=== PATIENT | female | born 1960 ===

== ENCOUNTER 2016-06-15 05:07 | Inpatient (IN) | payer OTHER ==
[2016-06-15] VITALS (15 sets, daily range): BP systolic 109–181; BP diastolic 60–87
[~2016-06-15] VITALS: Ht 167.6 cm; Wt 90.7 kg
[~2016-06-15 05:07] MED LIST: ASPIRIN81 MG ORAL; GLIPIZIDE5 MG ORAL; HYDROCHLOROTH12.5 M2 ORAL; LEVEMIR100 UNIT/1 SUBQ; LIPITOR40 MG ORAL; METFORMIN HCL1000 M1 ORAL; PAXIL20 MG ORAL
[2016-06-15] MEDS ORDERED: Vancomycin 1gm inj IVPB ONE (06:28)
[2016-06-15] MEDS ORDERED: Surgicel 4in x 8in TOPIC ONE (06:28)
[2016-06-15] MEDS ORDERED: Thrombin 5000 units TOPIC ONE (06:28)
[2016-06-15] MEDS ORDERED: Bupivacaine 0.5% Inj 30 ml vial INJ ONE (06:29)
[2016-06-15] MEDS ORDERED: Bacitracin 50000 Units Vial ONE (06:29)
[2016-06-15] MEDS ORDERED: Bupivacaine w/Epi 0.5% 30ml Vial INJ ONE (06:29)
[2016-06-15] MEDS ORDERED: Heparin 5000 units/ml inj ONE (06:49)
[2016-06-15] MEDS ORDERED: ceFAZolin sod 1 GM in NS 55 ML IVPB ONE (07:00)
[2016-06-15] MEDS ORDERED: Dexamethasone 20mg/5ml IVP ONE (07:00)
--- NOTE | 2016-06-15 07:13 | Anethesia Preoperative Eval ---
Anesthesia Pre-op PMH/ROS General Date of Evaluation: Jun 15, 2016 Time of Evaluation: 07:21 Anesthesiologist: Evelyn ASA Score: ASA 3 Mallampati Score Class I : Soft palate, uvula, fauces, pillars visible Class II: Soft palate, uvula, fauces visible Class III: Soft palate, base of uvula visible Class IV: Only hard plate visible Mallampati Classification: Class II Surgeon: Dalton Diagnosis: Back Pain Surgical Procedure: ADR L 5-S1 Anesthesia History: none Social History: current smoker Family History: no anesthesia problems Allergies: Coded Allergies: MORPHINE (Verified Allergy, Unknown, 01/06/16) Medications: see eMAR Past Medical History Cardiovascular: Reports: HTN, other - HL Pulmonary: Reports: other - Smoker Gastrointestinal/Genitourinary: Reports: GERD Neurologic/Psychiatric: Reports: depression/anxiety Endocrine: Reports: DM Other: obesity - BMI 33 Anesthesia Pre-op Phys. Exam Physician Exam Last Vital Signs Date Time Temp Pulse Resp B/P Pulse Ox O2 Delivery O2 Flow Rate FiO2 06/15/16 06:01 97.8 76 18 137/75 96 Room Air Constitutional: NAD Neurologic: CN 2-12 intact Cardiovascular: RRR Respiratory: CTA Gastrointestinal: S/NT/ND Airway Exam Mallampati Score: Class II MO: limited ROM: limited Teeth: intact, broken Anesthesia Pre-op A/P Studies Pre-op Studies: EKG - LAE Risk Assessment & Plan Assessment: ASA 3 Plan: GA, BIS, Glidescope Status Change Before Surgery: No Pre-Antibiotics Dru Grams Ancef IV Given Within 1 Hr of Incision: Yes Time Given: 07:36 Willard Rivas MD Jun 15, 2016 07:13
[2016-06-15] MEDS ORDERED: LR 1000ml 1,000 ML IVLG SCH (07:14)
[2016-06-15] MEDS ORDERED: Metoclopramide 10mg/2ml Inj IVP PRN (07:15)
[2016-06-15] MEDS ORDERED: Hydromorphone 0.5mg/0.5ml inj IVP PRN (07:15)
[2016-06-15] MEDS ORDERED: LORazepam Inj 2mg/ml 1ml IV PRN (07:15)
[2016-06-15] MEDS ORDERED: Norco 7.5mg/325mg tab ORAL PRN (07:15)
[2016-06-15] MEDS ORDERED: Labetalol 5mg/ml 20ml vial IV PRN (07:15)
[2016-06-15] MEDS ORDERED: Norco 5mg/325mg tab ORAL PRN (07:15)
[2016-06-15] MEDS ORDERED: Midazolam 2mg/2ml Inj IVP PRN (07:15)
[2016-06-15] MEDS ORDERED: Oxycodone/Acetaminophen 5-325 ORAL PRN (07:15)
[2016-06-15] MEDS ORDERED: Ketorolac 60mg Inj IV PRN (07:15)
[2016-06-15] MEDS ORDERED: Atropine Inj 1mg/10ml Syr IV PRN (07:15)
[2016-06-15] MEDS ORDERED: Ketorolac 30mg Inj IV PRN (07:15)
[2016-06-15] MEDS ORDERED: DiphenhydrAMINE 50mg/ml Inj IVP PRN (07:15)
[2016-06-15] MEDS ORDERED: fentaNYL 100 mcg/2 mL IV PRN (07:15)
[2016-06-15] MEDS ORDERED: Meperidine 25mg/ml Inj IV PRN (07:15)
--- NOTE | 2016-06-15 07:17 | Immediate Post-Op Evaluation ---
Immediate Post-Op Evalulation Immediate Post-Op Evalulation Procedure: ALIF L5-S1 Date of Evaluation: Jun 15, 2016 Time of Evaluation: 09:52 IV Fluids: 700 LR Blood Products: 0 Estimated Blood Loss: 50 Urinary Output: 200 Blood Pressure Systolic: 153 Blood Pressure Diastolic: 79 Pulse Rate: 90 Respiratory Rate: 16 O2 Sat by Pulse Oximetry: 98 Temperature (Fahrenheit): 98.6 Pain Score (1-10): 3 Nausea: No Vomiting: No Complications 0 Patient Status: awake, reacts, patent, extubated, none Hydration Status: adequate Dru Grams Ancef IV Given Within 1 Hr of Incision: Yes Time Given: 07:36 Willard Rivas MD Jun 15, 2016 07:17
[2016-06-15] MEDS ORDERED: fentaNYL 100 mcg/2 mL IV ONE (07:30)
[2016-06-15] MEDS ORDERED: LR 1000ml ONE (07:30)
[2016-06-15] MEDS ORDERED: Glycopyrrolate 0.2mg/ml 1ml Vial ONE (07:30)
[2016-06-15] MEDS ORDERED: Propofol 10mg/ml 20ml IV ONE (07:30)
[2016-06-15] MEDS ORDERED: fentaNYL 250mcg/5ml ONE (07:30)
[2016-06-15] MEDS ORDERED: Neostigmine 1mg/ml 10ml Inj ONE (07:30)
[2016-06-15] MEDS ORDERED: NS Irrig 1000ml ONE (07:30)
[2016-06-15] MEDS ORDERED: Zemuron 50mg/5ml Inj IV ONE (07:30)
[2016-06-15] MEDS ORDERED: Lidocaine 1% MPF 10mg/ml 5ml ONE (07:30)
[2016-06-15] MEDS ORDERED: Midazolam 2mg/2ml Inj ONE (07:30)
[2016-06-15] MEDS ORDERED: Sterile Water Irrig 1000ml IRRIG ONE (07:30)
--- NOTE | 2016-06-15 07:34 | Pre-Procedure Note/Attestation ---
Pre-Procedure Note/Attestation Complete Prior to Procedure Planned Procedure: not applicable Procedure Narrative: ALIF L5-S1 Indications for Procedure Pre-Operative Diagnosis: Post-trauma lumbar back pain Attestation I attest that I discussed the nature of the procedure; its benefits; risks and complications; and alternatives (and the risks and benefits of such alternatives ), prior to the procedure, with the patient (or the patient's legal development representative). I attest that, if there was a reasonable possibility of needing a blood transfusion, the patient (or the patient's legal development representative) was given the [facility] standardized written summary, pursuant to the Shar Bharat Blood Safety Act ([place] Health and Safety Code # 1645, as amended). I attest that I re-evaluated the patient just prior to the surgery and that there has been no change in the patient's H&P, except as documented below: ARCENIO VARELA Jun 15, 2016 07:34
[2016-06-15] MEDS ORDERED: D5 1/2NS 1,000 ML IV SCH (09:14)
--- NOTE | 2016-06-15 09:14 | Brief Operative Note ---
Immediate Post Operative Note Operative Note Pre-op Diagnosis: Post-trauma lumbar back pain Procedure: Hemivertebrectomy L5, S1 Correction deformity L5-S1 INterbody Reconstruction / Fusion Titanium Cages, BMP rior internal plate fixation SSEP xray Post-op Diagnosis: same as pre-op Findings: consistent w/pre-op dx studies Surgeon: Dalton Armature Winder: Jeremi Anesthesiologist: Evelyn Anesthesia: general Specimen: none Complications: none Condition: stable Estimated Blood Loss: minimal Drains: none Implant(s) used?: Yes ARCENIO VARELA Jun 15, 2016 09:14
[2016-06-15] MEDS ORDERED: Naloxone 0.4mg/ml Inj IVP PRN ×2 (09:15→11:45)
[2016-06-15] MEDS ORDERED: traMADol 50mg tab ORAL PRN (10:30)
[2016-06-15] MEDS ORDERED: Tylenol #3 tab (300mg/30mg) ORAL PRN (10:30)
[2016-06-15] MEDS ORDERED: Acetaminophen (Non formulary) 100 ML IV ONE (11:00)
[2016-06-15] MEDS: PCA HYDROmorphone 1mg/ml 30 ML IV PRN (11:49)
[2016-06-15] MEDS ORDERED: LORazepam 0.5mg tab ORAL PRN (12:00)
[2016-06-15] MEDS ORDERED: Rate Change PCA 1 Each MISC PRN (12:00)
[2016-06-15] MEDS ORDERED: HYDROmorphone 1mg/ml Carpuject SUBQ PRN (12:00)
[2016-06-15] MEDS ORDERED: oxyCODONE 5mg IR tab ORAL PRN ×2 (12:00)
--- NOTE | 2016-06-15 12:32 | Diagnostic Imaging Report ---
Indication: Back pain, intraoperative Technique: Digital intraoperative images Comparison: None Findings: Initial image demonstrates a surgical tool projected anterior to what is presumably L5-S1. Subsequent images demonstrate anterior fusion with anterior fusion hardware and disc spacer in place. Impression: Intraoperative imaging, as described
--- NOTE | 2016-06-15 15:00 | Operative Note - Dictated ---
DATE OF OPERATION: 06/15/2016 ADMITTING/PREOPERATIVE DIAGNOSIS: L5-S1 posttraumatic discogenic back pain. POSTOPERATIVE DIAGNOSIS: L5-S1 posttraumatic discogenic back pain. SURGEON: Gurpreet Hoffman Ph.D. M.D. [employer] SURGEON: Warren Blood M.D., Vascular Surgery (please see separate dictation for exposure and closure, Dr. Blood). ANESTHESIOLOGIST: Willard Rivas M.D. ANESTHESIA: General with intubation. ESTIMATED BLOOD LOSS: Less than 50 mL. COMPLICATIONS: None. POSTOPERATIVE CONDITION: Good/stable. DRAINS: None. OPERATIVE PROCEDURE: 1. L5-S1 anterior emanuel-vertebrectomy, inferior L5 superior S1. 2. Correction of the deformity from kyphosis to lordosis. 3. Interpositional grafting. 4. Synthetic titanium cages bilaterally, LT 16 mm diameter. 5. Interbody fusion, L5-S1, bone morphogenic protein. 6. Anterior internal plate fixation, 25 mm screws. 7. SSEP monitoring. 8. Intraoperative x-rays interpreted by surgeon. PROCEDURE: The patient was brought to the operating room and in the supine position, general anesthesia with intubation was induced. IV antibiotics were administered prior to incision time. After appropriate positioning, the anterior abdomen was sterilely prepped and draped free in the usual sterile fashion. For anterior approach, please see separate dictation by Dr. Blood. Identification of the midline and in the lateral was performed with a needle placed into the disc space with the needle bent at 90 degree angle so as to avoid penetration greater than 4 mm. Level marked. Needle removed. Retractors placed. Annulotomy was performed, followed with diskectomy too, but not through the posterior longitudinal ligament. SSEP monitoring stable. Determination of interval sizing to 16 mm graft. Emanuel-vertebrectomy, inferior L5 superior S1. Interpositional placement of titanium lordotic cages correction the deformity from kyphosis to lordosis placed bilaterally. SSEP monitoring stable. Titanium cages containing bone morphogenic protein for fusion L5-S1. Grafts incorporated in fibrin glue. Anterior internal plate fixation in a compressive fashion undertaken with 25 mm screws. Fluoroscopic guidance utilized at all times. Closure through the expertise of Dr. Blood. The patient subsequently transferred to postop recovery in good stable condition. Gurpreet Hoffman M.D. DR: MARIE JOB#: [id number] CC:
[2016-06-15] MEDS: PCA shift volume MISC SCH ×2 (15:16→23:00)
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
[2016-06-15] MEDS ORDERED: NovoLOG Insulin Flexpen SUBQ SCH (16:30)
[2016-06-15] MEDS: ceFAZolin sod 1 GM in D5W 55 ML IV SCH (16:32)
[2016-06-15] MEDS ORDERED: Milk of Magnesia 30ml Ud ORAL PRN (17:30)
[2016-06-15] MEDS: metFORMIN 500mg tab ORAL SCH (18:27)
[2016-06-15] MEDS: Docusate 100mg cap ORAL SCH (18:27)
--- NOTE | 2016-06-15 19:59 | Cardiology Progress Note ---
Assessment/Plan Assessment/Plan dm htn hyperlipidemia poor compliance tobacco use do obeisty work odd hours compliance with med has been an issue will try to continue her usual itme for her to get her diabetic meds has received steroid so will have higher insulin requirement as well hypoglycemic protocol iv hydration resume antidepressant but nto antihypertensive Objective Last 24 Hour Vital Signs Date Time Temp Pulse Resp B/P Pulse Ox O2 Delivery O2 Flow Rate FiO2 06/15/16 16:00 98.1 101 17 109/60 94 Room Air 06/15/16 12:40 18 06/15/16 12:25 18 06/15/16 12:10 18 06/15/16 12:00 97.9 88 19 117/65 99 Nasal Cannula 3.0 06/15/16 11:55 18 06/15/16 11:15 98.0 86 14 130/66 99 Nasal Cannula 3.0 06/15/16 11:05 86 15 122/68 99 Nasal Cannula 3.0 06/15/16 10:55 85 12 129/67 99 Nasal Cannula 3.0 06/15/16 10:40 87 13 117/60 99 Nasal Cannula 3.0 06/15/16 10:36 98.5 06/15/16 10:25 87 15 159/80 99 Nasal Cannula 3.0 06/15/16 10:20 86 13 161/79 99 Nasal Cannula 3.0 06/15/16 10:10 88 14 181/85 100 Simple Mask 6.0 06/15/16 10:10 97 181/85 06/15/16 10:00 92 15 172/85 100 Simple Mask 6.0 06/15/16 09:50 88 11 132/87 99 Simple Mask 6.0 06/15/16 09:45 85 12 147/82 99 Simple Mask 6.0 06/15/16 09:42 90 16 98 06/15/16 09:41 98.6 88 10 153/79 99 Simple Mask 6.0 06/15/16 06:01 97.8 76 18 137/75 96 Room Air Intake and Output 06/14/16 06/15/16 19:00 07:00 # Voids 1 EDDIE ENRIQUEZ Jun 15, 2016 19:59
[2016-06-15] MEDS ORDERED: Levemir Flexpen SUBQ ONE (21:00)
[2016-06-15] MEDS ORDERED: Levemir Flexpen SUBQ SCH (21:00)
[2016-06-15] MEDS: NovoLOG Insulin Flexpen SUBQ SCH (21:18)
[2016-06-16] VITALS: BP 120/70
[2016-06-16] MEDS: ceFAZolin sod 1 GM in D5W 55 ML IV SCH ×2 (00:16→08:10)
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
[2016-06-16 04:00] VITALS: BP 121/73
[2016-06-16] MEDS: NovoLOG Insulin Flexpen SUBQ SCH ×4 (06:09→21:49)
[2016-06-16] MEDS: PCA shift volume MISC SCH ×3 (07:00→23:00)
[2016-06-16 08:00] VITALS: BP 122/71
[2016-06-16] MEDS: Docusate 100mg cap ORAL SCH ×2 (09:14→17:20)
[2016-06-16] MEDS: metFORMIN 500mg tab ORAL SCH ×2 (09:15→17:20)
[2016-06-16] MEDS: PARoxetine 20mg tab ORAL SCH (09:15)
--- NOTE | 2016-06-16 09:49 | Progress Note ---
DATE: 06/16/2016 ACUTE PAIN MANAGEMENT PHYSICIAN PROGRESS NOTE: MEDICATIONS: Medication administration record reviewed. Medications include IV fluids, Colace, Protonix, pain medications, Paxil, and Ancef. Medications include BUSINESS TECHNOLOGY ANALYST Dilaudid, Cepacol, Benadryl, breakthrough Dilaudid, Mylanta, Zofran, oxycodone, and Ativan. OBJECTIVE: VITAL SIGNS: Afebrile, pulse 87, respiration 16, blood pressure 121/73, and oxygen saturation 98% on nasal cannula oxygen. LABORATORY STUDIES: No interval laboratory studies. I spent over 60 minutes in consultation today. I saw the patient at bedside. After discussion with the overnight nurse. I discussed the case with the surgeon, Dr. Hoffman. The patient is doing well after her lumbar spine fusion surgery yesterday. She is moving all extremities x4. She has not yet moved out of bed. She is not yet passing positive flatus, but has had no nausea symptoms. She remains NPO except for medications. We will holding her diabetic medications since she is NPO. Her last Accu-Chek was 180. The patient denies any shortness of breath or chest pain. She has been using her BUSINESS TECHNOLOGY ANALYST Dilaudid unit with good effect. The patient does state that she has tolerated Avery at home. I will leave a prescription for Avery 15 tablets along with Soma 25 tablets for outpatient usage. I also make available hydrocodone and oxycodone here in the hospital depending on her pain levels. I did encouraged the breakthrough doses of Dilaudid to help her ambulate later today with physical therapy. After ALIF procedure, we will await for evidence of positive bowel function returned, with positive flatus, before advancing her diet. I will defer the Lee care to the surgeon, Dr. Hoffman. The patient is comfortable with the current course. She had sequential compression devices in place for DVT prophylaxis. I did encourage aggressive incentive spirometer usage with her significant obesity. The patient agrees to be compliant with the recommended treatment. I do have a low dose available Ativan 0.5 mg for anxiety. Her anxiety levels have been well controlled currently. I will continue the Protonix for GI ulcer prophylaxis. Pillo Back M.D. DR: Nighat JOB#: [id number] CC:
--- NOTE | 2016-06-16 10:19 | Operative Note - Dictated ---
DATE OF OPERATION: 06/15/2016 VASCULAR SURGEON: Warren Blood M.D. SPINE SURGEON: Gurpreet Hoffman M.D. PREOPERATIVE DIAGNOSIS: Degenerative disc disease. POSTOPERATIVE DIAGNOSIS: Degenerative disc disease. PROCEDURE PERFORMED: Anterior retroperitoneal exposure of L5-S1 vertebral interspace. INDICATIONS: The patient is a very pleasant woman, who was seen in my office along with her family. She was carefully explained the need for vascular surgery involvement for anterior exposure of L5-S1, the possibility of vascular injury with possible need for blood transfusion, and deep venous thrombosis explicitly discussed as well as the need for lower abdominal incision. She understands these risks and wished to proceed. DESCRIPTION OF FINDINGS: A low Pfannenstiel type incision was used. A left retroperitoneal approach was used. There is no peritoneal or ureteral violation. There is no vascular injury. BLOOD LOSS: Less than 50 mL. COMPLICATIONS: Were none. DESCRIPTION OF PROCEDURE: The patient taken to the operative room, general anesthesia was used. Lee catheter was placed. The patient's abdomen was prepped and draped. Appropriate timeout procedures were taken. A transverse incision made just above the pubic symphysis. Flaps were raised superiorly and inferiorly. The anterior fascia was incised longitudinally in the midline. A plane identified posterior to the left rectus abdominis and developed posterolaterally towards the patient's left. The retroperitoneal space was entered below the arcuate line. The peritoneum and ureter mobilized towards the patient's right exposing the left common iliac vessels. Dissection was carried on the undersurface of left common iliac vein. The median sacral artery and vein were identified and ligated with vascular clips and divided, this allowed us to mobilize the iliac vessels superiorly and laterally and exposing the anterior surface of L5 and S1. The Omni retractors was set in place. Fluoroscopy used to confirm the appropriate level. Instrumentation and fusion were performed at L5-S1 as dictated separately. On completion, retractor gently removed. The peritoneum and ureter were intact. Iliac vessels were intact. The patient had a palpable external iliac artery pulse and normal pulse oximetry in the left foot throughout the case. The anterior fascia was then closed using #1 PDS suture in a running fashion. The skin and subcutaneous tissue closed using 3-0 Vicryl and 4-0 Monocryl running subcuticular closure technique. Estimated blood loss was less than 100 mL. Complication none. Warren Blood M.D. DR: Amor JOB#: [id number] CC: Warren Blood M.D.; Fax#: [phone] Hopkins, M.D. [facility] CENTERMiki
--- NOTE | 2016-06-16 11:06 | 48 Hour Post Anesthesia Eval ---
Post Anesthesia Evaluation Procedure: ALIF L5-S1 Date of Evaluation: Jun 16, 2016 Time of Evaluation: 06:40 Blood Pressure Systolic: 121 0: 73 Pulse Rate: 87 Respiratory Rate: 16 Temperature (Fahrenheit): 98.2 O2 Sat by Pulse Oximetry: 96 Airway: patent Nausea: No Vomiting: No Pain Intensity: 0 Hydration Status: adequate Cardiopulmonary Status: at baseline Mental Status/LOC: patient returned to baseline Post-Anesthesia Complications: 0 Follow-up care needed: N/A - further care as per primary team SARA PETER M.D. Jun 16, 2016 11:06
[2016-06-16 12:00] VITALS: BP 127/74
[2016-06-16] MEDS: PCA HYDROmorphone 1mg/ml 30 ML IV PRN (14:00)
[2016-06-16 16:00] VITALS: BP 122/68
--- NOTE | 2016-06-16 19:40 | Cardiology Progress Note ---
Assessment/Plan Assessment/Plan dm htn hyperlipidemia poor compliance tobacco use do obeisty indicated sarah lnot be working for the next few mon so agreeable to ashley geiger bs at [facility] still eelvated did no piter geiger thism am sarah have as of tonite is on mod intensity iss coverage d/w staff Subjective Cardiovascular: Denies: chest pain, lightheadedness, palpitations Respiratory: Denies: shortness of breath Gastrointestinal/Abdominal: Reports: constipated, Denies: abdomen distended Genitourinary: Denies: burning Objective Last 24 Hour Vital Signs Date Time Temp Pulse Resp B/P Pulse Ox O2 Delivery O2 Flow Rate FiO2 06/16/16 16:00 98.8 89 18 122/68 97 Nasal Cannula 2.0 06/16/16 16:00 18 06/16/16 14:30 98.1 06/16/16 14:03 18 06/16/16 12:00 18 06/16/16 12:00 98.1 86 20 127/74 98 Nasal Cannula 2.0 06/16/16 11:06 87 16 96 06/16/16 08:00 18 06/16/16 08:00 98.4 87 19 122/71 98 Nasal Cannula 2.0 06/16/16 04:00 98.2 87 18 121/73 96 Nasal Cannula 2.0 06/16/16 04:00 16 06/16/16 00:00 98.4 87 18 120/70 97 Room Air 06/16/16 00:00 18 06/15/16 20:00 16 06/15/16 20:00 97.9 90 18 129/74 97 Nasal Cannula 2.0 General Appearance: no apparent distress, alert Neck: supple Cardiovascular: normal rate, regular rhythm Respiratory/Chest: lungs clear, normal breath sounds Abdomen: hypoactive bowel sounds, tender - mild Extremities: non-tender, no swelling Intake and Output 06/15/16 06/16/16 19:00 07:00 Intake Total 700 ml 390 ml Output Total 250 ml 2500 ml Balance 450 ml -2110 ml Intake Oral 390 ml IV Total 700 ml Output Urine Total 200 ml 2500 ml Estimated Blood Loss 50 ml EDDIE ENRIQUEZ Jun 16, 2016 19:40
[2016-06-16 20:00] VITALS: BP 126/70
[2016-06-16] MEDS ORDERED: Levemir Flexpen SUBQ SCH ×2 (21:00)
[2016-06-17 00:25] VITALS: BP 110/64
[2016-06-17 04:00] VITALS: BP 107/66
[2016-06-17] MEDS: NovoLOG Insulin Flexpen SUBQ SCH ×4 (06:55→21:00)
[2016-06-17 08:00] VITALS: BP 113/65
[2016-06-17] MEDS: Docusate 100mg cap ORAL SCH ×2 (08:57→17:29)
[2016-06-17] MEDS: PARoxetine 20mg tab ORAL SCH (08:57)
[2016-06-17] MEDS: metFORMIN 500mg tab ORAL SCH ×2 (08:57→17:29)
[2016-06-17] MEDS ORDERED: 1/2 NS 1000ml IV ONE (09:45)
[2016-06-17] MEDS ORDERED: Tubing IV Secondary IV ONE (09:45)
--- NOTE | 2016-06-17 09:49 | Progress Note ---
DATE: 06/17/2016 ACUTE PAIN MANAGEMENT PHYSICIAN PROGRESS NOTE: SUBJECTIVE: Medication administration record reviewed. Medications include [place], Mylanta, Cepacol, Benadryl, Colace, Dilaudid, diabetes medications Ativan, Glucophage, Narcan Zofran oxycodone, Protonix, and Paxil. PHYSICAL EXAMINATION: VITAL SIGNS: Afebrile. 98.4 T-max overnight is 99.5, pulse 84, respirations 18, blood pressure 113/65, and pulse oximetry is 95% on supplemental oxygen. LABORATORY STUDIES: No interval laboratory studies. I spent over 60 minutes in consultation today. I saw the patient at the bedside with the nurse RN, Samm. I discussed the case with the charge nurse, LUIS ALBERTO Lang, along with the surgeon, Dr. Hoffman. The patient just started passing positive flatus, so surgeon will determine if he wants to advance her diet after anterior lumbar interbody fusion surgery. Lee catheter remains in place. I have asked the surgeon to determine if he feels comfortable to remove the Lee catheter at this time. The patient did ambulate out of bed one time yesterday with physical therapy. She is progressing fairly slowly with ambulation. I encouraged the patient to aggressively ambulate. I will discontinue the METALLOGRAPHIC TECHNICIAN and wean off her oxygen nasal cannula to make it easier to disconnect the monitor so that she can walk more frequently. The patient has been very compliant using her incentive spirometer. The patient is hungry and has no nausea symptoms. The patient states that the pain control has been adequate on the current analgesic regimen. I did leave a prescription for [place] for outpatient usage. The patient will continue on her mood stabilizing agent. Dr. Smith has been managing the patient's labile diabetes. Pillo Back M.D. DR: FARRAH JOB#: [id number] CC:
[2016-06-17 12:00] VITALS: BP 99/56
[2016-06-17] MEDS: Norco 10mg/325mg tab ORAL PRN (15:11)
[2016-06-17 16:00] VITALS: BP 122/64
--- NOTE | 2016-06-17 18:22 | Cardiology Progress Note ---
Assessment/Plan Assessment/Plan continue current management her condition is stable no change in medications Subjective Subjective The patient reports feeling good much better, no complaints Objective Last 24 Hour Vital Signs Date Time Temp Pulse Resp B/P Pulse Ox O2 Delivery O2 Flow Rate FiO2 06/17/16 17:29 97.7 06/17/16 16:00 97.7 80 18 122/64 92 Room Air 06/17/16 12:00 97.7 78 17 99/56 92 Room Air 06/17/16 08:00 98.4 84 18 113/65 95 Nasal Cannula 2.0 06/17/16 04:00 97.2 83 20 107/66 93 Nasal Cannula 06/17/16 04:00 18 06/17/16 00:25 99.5 84 21 110/64 94 Nasal Cannula 2.0 06/17/16 00:00 18 06/16/16 20:00 18 06/16/16 20:00 98.1 81 18 126/70 96 Nasal Cannula 2.0 General Appearance: no apparent distress, alert EENT: PERRL/EOMI Neck: supple Rhythm: NSR Cardiovascular: normal rate Respiratory/Chest: lungs clear Abdomen: non tender Extremities: non-tender Intake and Output 06/16/16 06/17/16 19:00 07:00 Intake Total 625 ml 365 ml Output Total 750 ml 1625 ml Balance -125 ml -1260 ml Intake Oral 240 ml IV Total 625 ml 125 ml Output Urine Total 750 ml 1625 ml Microbiology Date/Time Source Procedure Growth Status 06/15/16 05:50 Nasal Nares MRSA Culture - Final NO METHICILLIN RESISTANT STAPH AUREUS... Complete DOLORES WELCH Jun 17, 2016 18:22
[2016-06-17 20:00] VITALS: BP 108/60
[2016-06-17] MEDS: Levemir Flexpen SUBQ SCH (21:59)
[2016-06-18 00:45] VITALS: BP 101/61
[2016-06-18 04:00] VITALS: BP 112/68
[2016-06-18] MEDS: NovoLOG Insulin Flexpen SUBQ SCH ×4 (06:07→21:56)
[2016-06-18] MEDS: Docusate 100mg cap ORAL SCH ×2 (08:04→17:18)
[2016-06-18] MEDS: metFORMIN 500mg tab ORAL SCH ×2 (08:05→17:18)
[2016-06-18] MEDS: PARoxetine 20mg tab ORAL SCH (08:05)
[2016-06-18 08:23] VITALS: BP 114/63
[2016-06-18] MEDS ORDERED: Magnesium Citrate Liq Btl ORAL PRN (09:00)
[2016-06-18] MEDS ORDERED: Milk of Magnesia 30ml Ud ORAL ONE (09:30)
--- NOTE | 2016-06-18 09:49 | Progress Note ---
DATE: 06/18/2016 ACUTE PAIN MANAGEMENT PHYSICIAN PROGRESS NOTE MEDICATIONS: Medication administration record reviewed. Medications include [place], Mylanta, Cepacol, Benadryl, Colace, Dilaudid, diabetes medications, Ativan, Glucophage, Zofran, Protonix, Paxil. LABORATORY STUDIES: No interval laboratory studies. OBJECTIVE: VITAL SIGNS: Pain level 3/10 on the visual analog pain scale. Afebrile, pulse 74, respirations 20, blood pressure 112/68, and oxygen saturation 94% on room air. I spent over 60 minutes in consultation today. I discussed the case with the surgeon, Dr. Hoffman and the nurse RN, Trey. The last 24 hours have shown excellent improvement and progress. The patient's pain levels are very well controlled on her current analgesic regimen. She is able to sleep at times. She is increasing her ambulation. She has been compliant using her incentive spirometer. The patient did start passing positive flatus and Dr. Hoffman advanced the patient's diet as tolerated. Additionally, the Lee catheter was removed and the patient has been voiding well on her own. I have left a prescription for [place] and S[place] for outpatient usage. With the patient's increasing diet and absence of nausea symptoms, I will Hep-Lock her IV fluids to encourage out of bed. Additionally, I will dose her with milk of magnesia x1 to help with bowel regularity after anterior lumbar interbody fusion surgery. I also made available p.r.n. dose of magnesium citrate for whenever Dr. Hoffman directs the nursing to administer. The patient's has been providing good social support. I would hope for discharge planning within the next 36 hours if not sooner. Pillo Back M.D. DR: Vanessa JOB#: [id number] CC:
[2016-06-18 12:36] VITALS: BP 113/65
[2016-06-18 16:23] VITALS: BP 118/67
--- NOTE | 2016-06-18 16:31 | Cardiology Progress Note ---
Assessment/Plan Assessment/Plan continue current management her condition is stable no change in medications Subjective Subjective The patient reports feeling good much better, no complaints Objective Last 24 Hour Vital Signs Date Time Temp Pulse Resp B/P Pulse Ox O2 Delivery O2 Flow Rate FiO2 06/18/16 16:23 98.2 75 18 118/67 96 Room Air 06/18/16 12:36 97.2 69 15 113/65 96 Room Air 06/18/16 08:23 98.1 73 14 114/63 95 Room Air 06/18/16 04:00 98.1 74 20 112/68 94 Room Air 06/18/16 00:45 97.2 82 21 101/61 91 Room Air 06/17/16 20:00 98.2 78 16 108/60 94 Room Air 06/17/16 17:29 97.7 General Appearance: alert EENT: PERRL/EOMI Neck: non-tender Rhythm: NSR Cardiovascular: normal peripheral pulses, normal rate Respiratory/Chest: lungs clear Abdomen: non tender Intake and Output 06/17/16 06/18/16 19:00 07:00 Intake Total 1115 ml 1740 ml Output Total 925 ml Balance 190 ml 1740 ml Intake Oral 240 ml 240 ml IV Total 875 ml 1500 ml Output Urine Total 925 ml # Voids 1 3 DOLORES WELCH Jun 18, 2016 16:31
[2016-06-18 20:49] VITALS: BP 122/74
[2016-06-18] MEDS: Levemir Flexpen SUBQ SCH (21:57)
[2016-06-19] VITALS: BP 107/56
[2016-06-19 04:00] VITALS: BP 120/73
[2016-06-19] MEDS: NovoLOG Insulin Flexpen SUBQ SCH ×2 (06:06→11:45)
[2016-06-19 08:00] VITALS: BP 128/70
[2016-06-19] MEDS: Docusate 100mg cap ORAL SCH ×2 (09:00→09:29)
[2016-06-19] MEDS: PARoxetine 20mg tab ORAL SCH (09:29)
[2016-06-19] MEDS: metFORMIN 500mg tab ORAL SCH (09:29)
[2016-06-19 12:00] VITALS: BP 113/63
[2016-06-19] MEDS: Norco 10mg/325mg tab ORAL PRN (13:47)
[2016-06-19] MEDS ORDERED: 1/2 NS 1000ml IV ONE (14:09)
--- NOTE | 2016-06-19 21:48 | Progress Note ---
DATE: 06/19/2016 ACUTE PAIN MANAGEMENT PHYSICIAN PROGRESS NOTE: OBJECTIVE: VITAL SIGNS: I reviewed the medical record. I discussed the case in detail with the overnight nurse, day nurse LUIS ALBERTO Madrigal, and surgeon Dr. Gurpreet Hoffman. The patient continued to progress very well over the past 24 hours. She was given milk of magnesia late Sunday morning, which was followed early Sunday afternoon with magnesium citrate 120 mL dosing. Later in the evening, the patient did had a large bowel movement she continued to increase her ambulation. Pain controlled well managed on her current analgesic regimen. I did leave a prescription for [place] and S[place] for outpatient usage. The patient's cousin was available the patient home and Dr. Hoffman opted discharged the patient home on Sunday with followup in his outpatient clinic approximately two weeks. Pillo Back M.D. DR: Nighat JOB#: [id number] CC:
--- NOTE | 2016-06-20 07:44 | Discharge Summary ---
Discharge Summary Hospital Course Date of Admission Jun 15, 2016 at 05:07 Date of Discharge Jun 19, 2016 at 14:10 Admitting Diagnosis lumbar back pain 2 to trauma Reason for Hospitalization: elective surgery HPI Maranda Zuniga is a 55 year old female who was admitted on Jun 15, 2016 at 05: 07 for Spondylosis Procedures 06/15/16 dr Hoffman-spine surgeon 1. L5-S1 anterior dennise-vertebrectomy, inferior L5 superior S1. 2. Correction of the deformity from kyphosis to lordosis. 3. Interpositional grafting. 4. Synthetic titanium cages bilaterally, LT 16 mm diameter. 5. Interbody fusion, L5-S1, bone morphogenic protein. 6. Anterior internal plate fixation, 25 mm screws. 7. SSEP monitoring. 8. Intraoperative x-rays interpreted by surgeon. 06/15/16 dr Blood-vascular surgeon Anterior retroperitoneal exposure of L5-S1 vertebral interspace. Hospital Course patient with lumbar back pain admitted fro elective surgery on 06/15 course of recovery uneventful; pain management pain specialist followed PT/OT IS BS management BP management tolerated diet voiding freely certified alcohol and drug counselor on smoking cessation fup as outpt with surgery dc diagnoses: L5-S1 posttraumatic discogenic back pain. degenerative disc disease s/p L5-S1 anterior dennise-vertebrectomy, inferior L5 superior S1. s/p Correction of the deformity from kyphosis to lordosis. s/p Interpositional grafting. s/p Synthetic titanium cages bilaterally, LT 16 mm diameter. s/p Interbody fusion, L5-S1, bone morphogenic protein. s/p Anterior internal plate fixation, 25 mm screws. s/p Anterior retroperitoneal exposure of L5-S1 vertebral interspace DM HTN hyperlipidemia poor compliance tobacco use obesity . Discharge Medications Continued Medications: Aspirin* (Aspirin*) 81 Mg Tab.chew 81 MG ORAL DAILY, TAB Atorvastatin Calcium* (Lipitor*) 40 Mg Tablet 40 MG ORAL BEDTIME, #30 TAB 0 Refills Glipizide* (Glipizide*) 5 Mg Tablet 5 MG ORAL ACBREAKFAST, TAB Hydrochlorothiazide* (Hydrochlorothiazide*) 12.5 Mg Capsule 12.5 MG ORAL DAILY, CAP Insulin Detemir (Levemir) 100 Unit/1 Ml Vial 62 UNITS SUBQ DAILY, VIAL Metformin Hcl* (Metformin Hcl*) 1,000 Mg Tablet 1000 MG ORAL BID, TAB Paroxetine Hcl* (Paxil*) 20 Mg Tablet 20 MG ORAL DAILY, TAB 0 Refills Discharge Condition Upon Discharge: stable Discharge Disposition Patient was discharged to Home (01) Discharge Diagnoses: Juan Ramon ([facility]),Yareli SOTO Jun 20, 2016 07:44
== END 2016-06-19 14:10 | disposition home or self-care (01) | DRG 460 ==
LOC: SDSOVERFLO 05:07 → 3E 11:04
PROC: 0ST40ZZ Resection of Lumbosacral Disc, Open Approach (ICD-10-PCS; principal; 2016-06-15 07:00)
PROC: 4A11X4G Monitoring of Peripheral Nervous Electrical Activity, Intraoperative, External Approach (ICD-10-PCS; principal; 2016-06-15 07:00)
PROC: 0SG30A0 Fusion of Lumbosacral Joint with Interbody Fusion Device, Anterior Approach, Anterior Column, Open Approach (ICD-10-PCS; principal; 2016-06-15 07:00)
DX: M47.9 Spondylosis, unspecified (principal); I10 Essential (primary) hypertension; K21.9 Gastro-esophageal reflux disease without esophagitis; E66.9 Obesity, unspecified; Z68.33 Body mass index [BMI] 33.0-33.9, adult; E11.9 Type 2 diabetes mellitus without complications; F41.9 Anxiety disorder, unspecified; E78.00 Pure hypercholesterolemia, unspecified; Z72.0 Tobacco use; Z79.4 Long term (current) use of insulin
CPT/HCPCS: 36415; 72020; 76001; 82962; 86850; 86900; 86901; 87081; 94003; 94150; J1815; J2250; J2405; J2710; S5561